=== PATIENT | male | born 1970 | race Asian ===

== ENCOUNTER 2024-02-13 15:00 | Emergency (ER) | payer MEDICAID ==
[~2024-02-13] VITALS: Ht 154.9 cm; Wt 76.4 kg
[2024-02-13 15:08] VITALS: BP_DIAS 71; RESP 14; TEMP 99; O2SAT 99
[2024-02-13 15:40] LABS: BILIRUBIN,URINE NEGATIVE (Neg); CLARITY,URINE SLIGHTLY CLOUDY (Clear); COLOR,URINE YELLOW (Yellow); GLUCOSE, URINE NEGATIVE (Neg); KETONES,URINE NEGATIVE (Neg); LEUKOCYTE ESTERASE ,URINE NEGATIVE (Neg); NITRITES, URINE NEGATIVE (Neg); OCCULT BLOOD,URINE MODERATE (Neg); PROTEIN,URINE 100 mg/dl (Neg); UROBILINOGEN,URINE 0.2 E.U/dL (0.2-1.0)
[2024-02-13 15:41] LABS: BASOPHILS % (AUTO) 0.3 % (0-1); EOSINOPHILS # (AUTO) 0.3 X10'3 (0-0.9); EOSINOPHILS % (AUTO) 3.1 % (0-6); HEMATOCRIT 40.1 % (42.0-52.0); HEMOGLOBIN 13.8 g/dl (14.0-17.9); LYMPHOCYTES # (AUTO) 1.3 X10'3 (1.1-4.8); LYMPHOCYTES % (AUTO) 15.8 % (21-51); MEAN CORPUSCULAR HEMOGLOBIN 32.4 PG (27.0-31.0); MEAN CORPUSCULAR HGB CONC 34.4 g/dL (33.0-36.5); MEAN CORPUSCULAR VOLUME 94.2 FL (78-98); MEAN PLATELET VOLUME 7.1 FL (7.4-10.4); MONOCYTES # (AUTO) 0.6 X10'3 (0-0.9); MONOCYTES % (AUTO) 7.6 % (2-12); NEUTROPHILS % (AUTO) 73.2 % (42-75); PLATELET COUNT 208 X10'3 (140-440); RED BLOOD COUNT 4.26 X10'6 (4.70-6.10); WHITE BLOOD COUNT 8.2 X10'3 (4.5-11.0)
[2024-02-13 15:44] LABS: UA COLLECTION TYPE CLN CATCH MIDSTREAM
[2024-02-13 15:45] LABS: BACTERIA,URINE NONE SEEN /HPF (Neg); MUCUS STRANDS NONE SEEN /LPF (Neg); RBC,URINE 20-50 /HPF (0-2); SQUAMOUS EPITHELIAL CELL,UR NONE SEEN /LPF (FEW); URIC ACID CRYSTALS 2+ /HPF (NEGATIVE); WBC,URINE NONE SEEN /HPF (0-4)
[2024-02-13 15:54] LABS: APTT 26 SECONDS (22-32); PROTHROMBIN TIME 9.5 SECONDS (9.0-12.0)
[2024-02-13 15:55] LABS: INR 0.9 INR
[2024-02-13 15:56] LABS: ALANINE AMINOTRANSFERASE 24 U/L (12-78); ALBUMIN 3.6 G/DL (3.4-5.0); ALBUMIN/GLOBULIN RATIO 0.8 (1.1-1.5); ALKALINE PHOSPHATASE 82 IU/L (46-116); ANION GAP 9 (8-16); ASPARTATE AMINO TRANSFERASE 18 U/L (10-37); BILIRUBIN,TOTAL 0.4 MG/DL (0.1-1.0); BLOOD UREA NITROGEN 37 MG/DL (7-18); BUN/CREATININE RATIO 14.4 (10.0-20.0); CALCIUM 8.7 MG/DL (8.5-10.1); CHLORIDE 107 MMOL/L (99-107); CREATININE 2.57 MG/DL (0.60-1.10); GLUCOSE 104 MG/DL (70-104); LIPASE 47 U/L (16-77); POTASSIUM 3.4 MMOL/L (3.5-5.1); SODIUM 142 MMOL/L (135-145); TOTAL CARBON DIOXIDE 25.9 MMOL/L (24-32); eCRCL 25 ML/MIN; eGFR 27 ML/MIN
[2024-02-13] MEDS: normal saline 1000ml 1,000 ML IV ONE (18:15)
[2024-02-13] MEDS: ondansetron/PF 4mg/2ml inj IV ONE (18:53)
[2024-02-13] MEDS: morphine 2 MG/ML inj. syringe IV ONE (18:53)
[2024-02-13] MEDS: normal saline 1000ML IV soln IVB ONE (18:54)
[2024-02-13 19:18] VITALS: BP_SYST 216; PULSE 71
[2024-02-13] MEDS: hydrALAZINE 20mg/ml inj. IV ONE (19:18)
[2024-02-13] MEDS ORDERED: diazepam inj 5 MG/ML inj. IV ONE (19:55)
[2024-02-13] MEDS ORDERED: LISI1TAB49 PO (20:20)
[2024-02-13] MEDS: ketorolac tromethamine 15mg/ml inj. IV ONE (20:26)
[2024-02-13] MEDS: ketorolac trometh. 30mg/ml inj. IV ONE (20:27)
[2024-02-13] MEDS: cloNIDine 0.1 mg tablet PO ONE (20:28)
== END 2024-02-13 20:46 | disposition home or self-care (01) ==
LOC: ER 15:02
DX: N20.0 Calculus of kidney (principal); Z79.899 Other long term (current) drug therapy
CPT/HCPCS: 36415; 74176; 80053; 81001; 83690; 85025; 85610; 85730; 96361; 96374; 96375; 99285; J0360; J2270; J2405; J7030